=== PATIENT | female | born 1960 | race Caucasian/White ===

== ENCOUNTER → 2022-08-06 15:54 | Outpatient (CLI) | payer OTHER, SELFPAY ==
--- NOTE | ~2022-08-06 | MR_ITS ---
EXAMINATION: MR brain/brain stem wo con DATE: 08/06/2022 16:26 INDICATION: Memory loss. TECHNIQUE: Magnetic resonance imaging (MRI) of the brain and brainstem was performed without intraven ous contrast. COMPARISON: None. FINDINGS: There is no intracranial hemorrhage, acute infarction, or abnormal intracranial mass lesion . The ventricles are normal in size. The paranasal sinuses are clear. There are likely changes of ocu lar lens replacement surgeries. The mastoid air cells are normal. IMPRESSION: 1. Normal brain. Reviewed, dictated and finalized at location A. F [employer] IMPRESSION: 1. Normal brain.
== END ==
DX: R41.3 Other amnesia (principal); R25.9 Unspecified abnormal involuntary movements
CPT/HCPCS: 70551